=== PATIENT | female | born 1980 | race American Indian/Alaskan Native ===

== ENCOUNTER 2020-03-11 15:41 | Inpatient (IN) | payer OTHER ==
[~2020-03-11] VITALS: Ht 180.3 cm; Wt 101.6 kg
[2020-03-11] MEDS ORDERED: PRENATAL TABLE1 EAC3 (17:54)
[2020-03-11] MEDS ORDERED: ALLEGRA-D 24 H1 EACH PO (17:58)
[2020-03-11] MEDS ORDERED: ZYRTEC10 MG PO (17:58)
== END 2020-05-07 13:12 | disposition home or self-care (01) | DRG 819 ==
LOC: LDR 15:41 → OB/GYN 03-13 08:34
PROVIDERS: ADMIT Obstetrics & Gynecology; ATTEND Obstetrics & Gynecology
PROC: 0UVC7ZZ Restriction of Cervix, Via Natural or Artificial Opening (ICD-10-PCS; principal; 2020-03-12 11:00)
PROC: F07Z5FZ Bed Mobility Treatment using Assistive, Adaptive, Supportive or Protective Equipment (ICD-10-PCS; 2020-03-29)
DX: O34.32 Maternal care for cervical incompetence, second trimester (principal); O62.0 Primary inadequate contractions; Z3A.20 20 weeks gestation of pregnancy; O24.410 Gestational diabetes mellitus in pregnancy, diet controlled

== ENCOUNTER 2020-05-25 13:54 | Outpatient (CLI) | payer OTHER ==
[~2020-05-25 13:54] MED LIST: ALLEGRA-D 24 H1 EACH PO; PRENATAL TABLE1 EAC3; ZYRTEC10 MG PO
== END 2020-05-25 14:43 | disposition home or self-care (01) ==
LOC: NST 13:54
PROVIDERS: ATTEND Obstetrics & Gynecology Maternal & Fetal Medicine
DX: Z34.83 Encounter for supervision of other normal pregnancy, third trimester (principal)

== ENCOUNTER 2020-06-14 13:34 | Outpatient (CLI) | payer OTHER | END 2020-06-14 15:01 | disposition home or self-care (01) | LOC: NST 13:34 | PROVIDERS: ATTEND Obstetrics & Gynecology | DX: Z34.83 Encounter for supervision of other normal pregnancy, third trimester (principal) ==

== ENCOUNTER 2020-06-28 09:17 | Outpatient (CLI) | payer OTHER | END 2020-06-28 10:28 | disposition home or self-care (01) | LOC: NST 09:17 | PROVIDERS: ATTEND Obstetrics & Gynecology Maternal & Fetal Medicine | DX: Z34.83 Encounter for supervision of other normal pregnancy, third trimester (principal) ==

== ENCOUNTER 2020-07-11 14:00 | Inpatient (IN) | payer OTHER ==
[~2020-07-11] VITALS: Ht 180.3 cm; Wt 106.1 kg
[2020-07-15] MEDS ORDERED: CHILDREN'S ASPI81 MG PO (08:54)
[2020-07-15] MEDS ORDERED: HUMULIN R500 UNIT/1 (08:55)
[2020-07-15] MEDS ORDERED: HUMULIN N100 UNIT/2 (08:55)
== END 2020-07-17 12:17 | disposition home or self-care (01) | DRG 807 ==
LOC: LDR 07-15 07:01 → OB/GYN 07-15 18:19 → SURH 07-30 14:00
PROVIDERS: ADMIT Obstetrics & Gynecology; ATTEND Obstetrics & Gynecology
PROC: 10E0XZZ Delivery of Products of Conception, External Approach (ICD-10-PCS; principal; 2020-07-15)
PROC: 0KQM0ZZ Repair Perineum Muscle, Open Approach (ICD-10-PCS; 2020-07-15)
PROC: 3E033VJ Introduction of Other Hormone into Peripheral Vein, Percutaneous Approach (ICD-10-PCS; 2020-07-15)
PROC: 10907ZC Drainage of Amniotic Fluid, Therapeutic from Products of Conception, Via Natural or Artificial Opening (ICD-10-PCS; 2020-07-15)
PROC: 4A1HXFZ Monitoring of Products of Conception, Cardiac Rhythm, External Approach (ICD-10-PCS; 2020-07-15)
DX: O70.1 Second degree perineal laceration during delivery (principal); Z37.0 Single live birth; O24.429 Gestational diabetes mellitus in childbirth, unspecified control; Z3A.37 37 weeks gestation of pregnancy; Z20.822 Contact with and (suspected) exposure to COVID-19

== ENCOUNTER 2020-07-13 11:08 | Outpatient (CLI) | payer OTHER | END 2020-07-13 11:36 | disposition home or self-care (01) | LOC: NST 11:08 | PROVIDERS: ATTEND Obstetrics & Gynecology Maternal & Fetal Medicine | DX: Z34.83 Encounter for supervision of other normal pregnancy, third trimester (principal) ==